=== PATIENT | male | born 1965 | race Caucasian/White ===

== ENCOUNTER 2018-05-15 06:14 | Emergency (ER) | payer MEDICARE, OTHER ==
[2018-05-15 06:15] VITALS: BMI 28.1
[2018-05-15 06:27] VITALS: O2SAT 96
[2018-05-15] MEDS ORDERED: Albuterol-Ipratrop 3 mg / 0.5 (3 ml) UD IH STA (07:44)
--- NOTE | 2018-05-15 08:05 | ED PDOC ---
History of Present Illness History of Present Illness: 53 year old male with a history of HIV presents to the ED with cough, runny nose, cold, and chest and nose congestion for the last week. Patient reports being compliant with his HIV medications. Denies chest pain, shortness of breath, nausea, vomiting, fever and chills. PMD: Dr. Matthew HPI: Influenza Time Seen by Provider: 05/15/18 07:07 Chief Complaint: Cough, Cold, Congestion Chief Complaint (Provider): Cough, Cold, Congestion History Per: Patient Exam Limitations: no limitations Onset/Duration Of Symptoms: Days (x 1 week) Symptoms include: cough, nasal congestion. denies: fever, vomiting, diarrhea, chest pain Past Medical History Reviewed: Historical Data, Nursing Documentation, Vital Signs Vital Signs: Last Vital Signs Temp 98.2 F 05/15/18 06:24 Pulse 100 H 05/15/18 06:24 Resp 16 05/15/18 06:24 BP 116/81 05/15/18 06:24 Pulse Ox 96 05/15/18 06:24 - Medical History PMH: HIV, Malignancy (Anal) Denies: Chronic Kidney Disease - Surgical History Surgical History: No Surg Hx - Family History Family History: States: Unknown Family Hx - Social History Current smoker - smoking cessation education provided: No Ex-Smoker (has not smoked in the last 12 months): No Alcohol: None Drugs: Denies - Home Medications Home Medications: Ambulatory Orders Medication Instructions Recorded Efavirenz/Emtricitabine/Teno 1 tab PO DAILY 04/03/16 [Atripla 600 MG-200 MG-300 MG] oxyCODONE [oxyCODONE Immediate 15 mg PO DAILY 04/03/16 Release Tab] Albuterol Sulfate [Proair Hfa] 0.09 mg IH Q6H PRN #2 inh 05/15/18 Benzonatate [Tessalon Perles] 100 mg PO BID PRN 5 Days sgl 05/15/18 Ibuprofen [Motrin] 600 mg PO TID 7 Days tab 05/15/18 predniSONE [predniSONE Tab] 20 mg PO BID 5 Days tab 05/15/18 - Allergies Allergies/Adverse Reactions: Allergies Allergy/AdvReac Type Severity Reaction Status Date / Time No Known Allergies Allergy Verified 05/15/18 06:23 Review of Systems ROS Statement: Except As Marked, All Systems Reviewed And Found Negative Constitutional: Negative for: Fever, Chills ENT: Positive for: Nose Discharge, Nose Congestion Cardiovascular: Negative for: Chest Pain Respiratory: Positive for: Cough, Other (chest congestion). Negative for: Shortness of Breath Gastrointestinal: Negative for: Nausea, Vomiting, Abdominal Pain Physical Exam - Reviewed Nursing Documentation Reviewed: Yes Vital Signs Reviewed: Yes - Physical Exam Appears: Positive for: Non-toxic, No Acute Distress Head Exam: Positive for: ATRAUMATIC, NORMAL INSPECTION, NORMOCEPHALIC Skin: Positive for: Normal Color, Warm, Dry Eye Exam: Positive for: Normal appearance, EOMI, PERRL ENT: Positive for: Nasal Congestion. Negative for: Pharyngeal Erythema, Tonsillar Exudate, Tonsillar Swelling Neck: Positive for: Normal, Painless ROM, Supple Cardiovascular/Chest: Positive for: Regular Rate, Rhythm. Negative for: Murmur Respiratory: Positive for: Wheezing (mild inspriatory and expiratory wheezing bilaterally). Negative for: Respiratory Distress Gastrointestinal/Abdominal: Positive for: Normal Exam, Soft. Negative for: Tenderness Extremity: Positive for: Normal ROM (upper and lower extremities). Negative for: Deformity Neurologic/Psych: Positive for: Alert, Oriented. Negative for: Motor/Sensory Deficits Medical Decision Making Medical Decision Makin:44 Impression: cough, cold, chest congestion Initial Plan: --Prednisone 60 mg PO --Duoneb 3 ml INH --Tessalon Perles 100 mg PO --Motrin 600 mg PO --Peak flow pre/post Scribe Attestation: Documented by Caro Kellogg acting as a scribe for Charlie Heredia MD Provider Scribe Attestation: All medical record entries made by the Scribe were at my direction and personally dictated by me. I have reviewed the chart and agree that the record accurately reflects my personal performance of the history, physical exam, medical decision making, and the department course for this patient. I have also personally directed, reviewed, and agree with the discharge instructions and disposition. - ECG O2 Sat by Pulse Oximetry: 96 Pulse Ox Interpretation: Normal - Progress ED Course And Treament: 815: Stable. AAOx3. Pain free. Tolerated PO. Fu with pcp. Disposition - Clinical Impression Clinical Impression: Bronchitis - Patient ED Disposition Is Patient to be Admitted: No Counseled Patient/Family Regarding: Diagnosis, Need For Followup - Disposition Referrals: [facility] [Outside] - 05/16/18 Disposition: Routine/Home Disposition Time: 08:00 Condition: STABLE Additional Instructions: Return if not better in 3 days. Prescriptions: Albuterol Sulfate [Proair Hfa] 0.09 mg IH Q6H PRN #2 inh PRN Reason: Wheezing Benzonatate [Tessalon Perles] 100 mg PO BID PRN 5 Days sgl PRN Reason: Cough Ibuprofen [Motrin] 600 mg PO TID 7 Days tab predniSONE [predniSONE Tab] 20 mg PO BID 5 Days tab Instructions: Acute Bronchitis Forms: [employer] (Rwandan), [facility] ED School/Work Excuse
[2018-05-15 08:39] VITALS: BP 103/73; PULSE 80; RESP 18; TEMP 98
== END 2018-05-15 08:35 | disposition home or self-care (01) ==
LOC: H.ER 06:14
DX: J40 Bronchitis, not specified as acute or chronic (principal); Z21 Asymptomatic human immunodeficiency virus [HIV] infection status; Z79.899 Other long term (current) drug therapy; Z87.891 Personal history of nicotine dependence

== ENCOUNTER 2018-06-26 07:01 | Emergency (ER) | payer MEDICARE, OTHER ==
[2018-06-26 07:01] VITALS: BMI 28.1
[2018-06-26 07:28] VITALS: TEMP 98.1; O2SAT 98
--- NOTE | 2018-06-26 08:10 | ED PDOC ---
HPI: Skin/Bite Injury Time Seen by Provider: 06/26/18 07:49 Chief Complaint (Nursing): Abnormal Skin Integrity Chief Complaint (Provider): Abnormal Skin Integrity History Per: Patient History/Exam Limitations: no limitations Onset/Duration Of Symptoms: Days (x 1 week) Current Symptoms Are (Timing): Still Present Location Of Injury: Right: Thigh, Posterior: Thigh Quality Of Symptoms: Itching, Other (burning) Additional Complaint(s): 53 year old male with a history of HIV presents to the ED with a rash to the upper posterior left leg ongoing for 1 week. Rash feels itchy and burning in nature. Patient has been using Bacitracin and moisturizing cream with minimal relief. He also takes anti-retroviral drugs for HIV and has an undetectable viral load. Denies vesicles, pain with bowel movement, fever, swelling or trauma to the area, skin changes, rash to other parts of the body, weakness, headache and visual changes. PMD: Dr. Matthew Past Medical History Reviewed: Historical Data, Nursing Documentation, Vital Signs Vital Signs: Last Vital Signs Temp 98.1 F 06/26/18 07:23 Pulse 73 06/26/18 07:23 Resp BP 115/72 06/26/18 07:23 Pulse Ox 98 06/26/18 07:23 - Medical History PMH: HIV, Malignancy (Anal) Denies: Chronic Kidney Disease - Surgical History Other surgeries: Colectomy 2010 - Family History Family History: States: Unknown Family Hx - Social History Current smoker - smoking cessation education provided: No Drugs: Denies - Home Medications Home Medications: Ambulatory Orders Medication Instructions Recorded Efavirenz/Emtricitabine/Teno 1 tab PO DAILY 04/03/16 [Atripla 600 MG-200 MG-300 MG] oxyCODONE [oxyCODONE Immediate 15 mg PO DAILY 04/03/16 Release Tab] Albuterol Sulfate [Proair Hfa] 0.09 mg IH Q6H PRN #2 inh 05/15/18 Benzonatate [Tessalon Perles] 100 mg PO BID PRN 5 Days sgl 05/15/18 Ibuprofen [Motrin] 600 mg PO TID 7 Days tab 05/15/18 predniSONE [predniSONE Tab] 20 mg PO BID 5 Days tab 05/15/18 Ammonium Lactate 12% [Lac-Hydrin] 1 appful TP BID #1 tube 06/26/18 Hydrocortisone 1% Cream [Cortizone 30 applic TOP BID #1 tube 06/26/18 1% Cream] - Allergies Allergies/Adverse Reactions: Allergies Allergy/AdvReac Type Severity Reaction Status Date / Time No Known Allergies Allergy Verified 05/15/18 06:23 Review of Systems ROS Statement: Except As Marked, All Systems Reviewed And Found Negative Constitutional: Negative for: Fever, Weakness Eyes: Negative for: Vision Change Skin: Positive for: Rash (posterior left upper leg) Neurological: Negative for: Headache Physical Exam - Reviewed Nursing Documentation Reviewed: Yes Vital Signs Reviewed: Yes - Physical Exam Appears: Positive for: No Acute Distress Head Exam: Positive for: ATRAUMATIC, NORMAL INSPECTION, NORMOCEPHALIC Skin: Positive for: Warm, Dry, Rash (dry, scaly non vesicular, non-dermatomal eczema like rash to skin of posterior left upper thigh; non-tender, non- indurated) ENT: Positive for: Other (oropharynx: no thrush) Neck: Positive for: Painless ROM Cardiovascular/Chest: Positive for: Regular Rate, Rhythm. Negative for: Murmur Respiratory: Positive for: Normal Breath Sounds. Negative for: Respiratory Distress Back: Positive for: Normal Inspection, Other (tattoo on lower back) Extremity: Positive for: Normal ROM, Other (right leg also has dry skin). Negative for: Tenderness, Deformity Neurologic/Psych: Positive for: Alert, Oriented, Gait (is normal). Negative for: Motor/Sensory Deficits - ECG O2 Sat by Pulse Oximetry: 98 (RA) Pulse Ox Interpretation: Normal Medical Decision Making Medical Decision Makin:00 Impression: rash Initial Plan: Patient will be given topical hydrocortisone cream and Lac-Hydrin. Requires no further treatment in the ED at this time and is stable for discharge. Follow up with PMD next week. Scribe Attestation: Documented by Caro Kellogg acting as a scribe for Feroz Martin III, DO Provider Scribe Attestation: All medical record entries made by the Scribe were at my direction and personally dictated by me. I have reviewed the chart and agree that the record accurately reflects my personal performance of the history, physical exam, medical decision making, and the department course for this patient. I have also personally directed, reviewed, and agree with the discharge instructions and disposition. Disposition - Clinical Impression Clinical Impression: Rash - Patient ED Disposition Is Patient to be Admitted: No - Disposition Referrals: Benton Matthew MD [Staff Provider] - Disposition: Routine/Home Disposition Time: 08:01 Condition: STABLE Additional Instructions: Return to ER for any worse or new symptoms. Use medications as directed. See Dr Mathis next week. Prescriptions: Ammonium Lactate 12% [Lac-Hydrin] 1 appful TP BID #1 tube Hydrocortisone 1% Cream [Cortizone 1% Cream] 30 applic TOP BID #1 tube Instructions: Skin Rash (DC) Forms: [employer] (Telugu)
[2018-06-26 08:26] VITALS: BP 118/70; PULSE 70; RESP 18
== END 2018-06-26 08:05 | disposition home or self-care (01) ==
LOC: H.ER 07:01
DX: R21 Rash and other nonspecific skin eruption (principal); Z21 Asymptomatic human immunodeficiency virus [HIV] infection status

== ENCOUNTER 2018-09-01 06:50 | Emergency (ER) | payer MEDICARE, OTHER ==
[2018-09-01 06:50] VITALS: BMI 28.1
[2018-09-01 07:13] VITALS: BP 116/78; TEMP 98.2; O2SAT 96
[2018-09-01] MEDS ORDERED: Albuterol-Ipratrop 3 mg / 0.5 (3 ml) UD INH STA (07:32)
[2018-09-01 07:35] VITALS: RESP 19
--- NOTE | 2018-09-01 07:35 | ED PDOC ---
HPI: SOB/CHF/COPD Time Seen by Provider: 09/01/18 07:24 Chief Complaint (Nursing): Shortness Of Breath Chief Complaint (Provider): Shortness Of Breath History Per: Patient History/Exam Limitations: no limitations Onset/Duration Of Symptoms: Intermittent Episodes (x3) Current Symptoms Are (Timing): Still Present Additional Complaint(s): 53 year old male with pmHx of HIV and bronchitis, presents to ED with a complaint of shortness of breath associated with intermittent cough, chest tightness, and fever for 3 days. Patient was given inhaler a year ago for bronchitis but discontinued use due to dizziness. Tylenol last taken at 1999 yesterday. PCP: Dr. Benton Matthew Past Medical History Reviewed: Historical Data, Nursing Documentation, Vital Signs Vital Signs: Last Vital Signs Temp 98.2 F 09/01/18 07:07 Pulse 84 09/01/18 07:07 Resp 19 09/01/18 07:28 BP 116/78 09/01/18 07:07 Pulse Ox 96 09/01/18 07:07 - Medical History PMH: Bronchitis, HIV, Malignancy (Anal) Denies: Asthma, Chronic Kidney Disease - Family History Family History: States: Unknown Family Hx - Social History Current smoker - smoking cessation education provided: No - Home Medications Home Medications: Ambulatory Orders Medication Instructions Recorded Efavirenz/Emtricitabine/Teno 1 tab PO DAILY 04/03/16 [Atripla 600 MG-200 MG-300 MG] oxyCODONE [oxyCODONE Immediate 15 mg PO DAILY 04/03/16 Release Tab] Albuterol Sulfate [Proair Hfa] 0.09 mg IH Q6H PRN #2 inh 05/15/18 Benzonatate [Tessalon Perles] 100 mg PO BID PRN 5 Days sgl 05/15/18 Ibuprofen [Motrin] 600 mg PO TID 7 Days tab 05/15/18 predniSONE [predniSONE Tab] 20 mg PO BID 5 Days tab 05/15/18 Ammonium Lactate 12% [Lac-Hydrin] 1 appful TP BID #1 tube 06/26/18 Hydrocortisone 1% Cream [Cortizone 30 applic TOP BID #1 tube 06/26/18 1% Cream] Azithromycin [Z-Donnie] 250 mg PO DAILY #6 tab 09/01/18 - Allergies Allergies/Adverse Reactions: Allergies Allergy/AdvReac Type Severity Reaction Status Date / Time No Known Allergies Allergy Verified 09/01/18 07:13 Review of Systems ROS Statement: Except As Marked, All Systems Reviewed And Found Negative Constitutional: Positive for: Fever Respiratory: Positive for: Cough, Pleuritic Pain Physical Exam - Reviewed Nursing Documentation Reviewed: Yes Vital Signs Reviewed: Yes - Physical Exam Appears: Positive for: Non-toxic, No Acute Distress Head Exam: Positive for: ATRAUMATIC, NORMAL INSPECTION, NORMOCEPHALIC Skin: Positive for: Normal Color Eye Exam: Positive for: Normal appearance, EOMI, PERRL ENT: Positive for: Normal ENT Inspection. Negative for: Pharyngeal Erythema Cardiovascular/Chest: Positive for: Regular Rate, Rhythm, Chest Non Tender Respiratory: Positive for: Crackles (bilaterally). Negative for: Respiratory Distress Back: Positive for: Normal Inspection Extremity: Positive for: Normal ROM (upper/lower) Neurologic/Psych: Positive for: Alert, Oriented (x3). Negative for: Motor/Sensory Deficits - Laboratory Results Result Diagrams: 09/01/18 07:40 09/01/18 07:40 - ECG ECG: Positive for: Interpreted By [place] ECG Rhythm: Positive for: Normal QRS, Normal ST Segment, Sinus Rhythm Rate: 69 O2 Sat by Pulse Oximetry: 96 (RA) Pulse Ox Interpretation: Normal Medical Decision Making Medical Decision Making: Time: 07 Initial Plan: work up for bronchitis vs. pneumonia. No Hx of asthma. Will give 1 treatment of nebulizer for symptomatic care. * Labs * EKG * CXR * Duoneb 3ml INH * Reassessment Time: 0950 --Labs reviewed: unremarkable except for (+) dehydration. Upon provider reevaluation, patient is medically stable, tolerating PO, reports improvement in symptoms, and requires no further treatment in the ED at this time. Patient will be discharged home with Rx for Zpack to treat bronchitis vs. clinical pneumonia and advised to follow up with PCP in 2 weeks. Counseling was provided and all questions were answered regarding diagnosis. There is agreement to discharge plan. Return perameters discussed. Clinical Impression: Bronchitis Scribe Attestation: Documented by Joelle Mullins, acting as a scribe for Chandrika Chavez MD. Provider Scribe Attestation: All medical record entries made by the Scribe were at my direction and personally dictated by me. I have reviewed the chart and agree that the record accurately reflects my personal performance of the history, physical exam, medical decision making, and the department course for this patient. I have also personally directed, reviewed, and agree with the discharge instructions and disposition. Disposition - Clinical Impression Clinical Impression: Bronchitis - Patient ED Disposition Is Patient to be Admitted: No Counseled Patient/Family Regarding: Studies Performed, Diagnosis, Need For Followup, Rx Given - Disposition Disposition: Routine/Home Disposition Time: 19:50 Condition: IMPROVED Additional Instructions: Take antibiotics as prescribed. Follow up with primary medical doctor in [facility]. Return to the emergncy department if symptoms worsen or if new symptoms develop. Prescriptions: Azithromycin [Z-Donnie] 250 mg PO DAILY #6 tab Instructions: Acute Bronchitis, Adult (DC) Forms: [employer] (Comoran) Print Language: WELSH
[2018-09-01] MEDS ORDERED: Albuterol-Ipratrop 3 mg / 0.5 (3 ml) UD ONE (07:37)
[2018-09-01 08:04] LABS: BASO % 0.6 % (0.0-2.0); EOS # 0.1 K/uL (0.0-0.7); EOS % 2.2 % (0.0-4.0); LYMPH # 1.9 K/uL (1.0-4.3); LYMPH % 29.9 % (20.0-40.0); MEAN CELL VOLUME 87.2 fl (80.0-94.0); MEAN CORPUSCULAR HEMOGLOBIN 29.7 pg (27.0-31.0); MEAN CORPUSCULAR HGB CONC 34.1 g/dL (33.0-37.0); MEAN PLATELET VOLUME 8.5 fl (7.2-11.7); MONO # 0.7 K/uL (0.0-0.8); MONO % 10.6 % (0.0-10.0); NEUT # 3.7 K/uL (1.8-7.0); NEUT % 56.7 % (50.0-75.0); NRBC % 0.3 % (0.0-0.0); RBC 5.03 Mil/uL (4.40-5.90); RED CELL DISTRIBUTION WIDTH 13.8 % (11.5-14.5); WHITE BLOOD COUNT 6.5 K/uL (4.8-10.8)
[2018-09-01 08:16] LABS: BLOOD UREA NITROGEN 28 mg/dl (9-20); CALCIUM 9.9 mg/dL (8.4-10.2); GFR NON-AFRICAN AMERICAN > 60
[2018-09-01 08:55] VITALS: PULSE 69
--- NOTE | 2018-09-01 10:03 | RAD ---
Date of service: 09/01/2018 HISTORY: Cough COMPARISON: 08/27/2012. TECHNIQUE: Chest PA and lateral FINDINGS: LINES AND TUBES: None. LUNG AND PLEURA: There is mild pulmonary hyperinflation and peribronchial thickening with streaky opacities in the lungs. No focal consolidation. No pleural effusion or pneumothorax. HEART AND MEDIASTINUM: The heart is not enlarged. No aortic atherosclerotic calcifications present. The hilar and mediastinal contours are within normal limits. SKELETAL STRUCTURES: The bony structures are within normal limits for the patient's age. VISUALIZED UPPER ABDOMEN: Normal. OTHER FINDINGS: None. IMPRESSION: Findings may represent reactive small airway disease/viral or atypical pneumonitis. No lobar pneumonia.
--- NOTE | 2018-09-01 15:38 | CARD ---
APPROVED REPORT Date of service: 09/01/2018 EKG Measurement Heart [id number] <Conclusion> Normal sinus rhythm Normal ECG
== END 2018-09-01 09:58 | disposition home or self-care (01) ==
LOC: H.ER 06:50
DX: J40 Bronchitis, not specified as acute or chronic (principal); J44.9 Chronic obstructive pulmonary disease, unspecified